=== PATIENT | male | born 1935 | race Caucasian/White ===

== ENCOUNTER 2016-08-06 11:49 | Inpatient (IN) | payer MEDICARE, OTHER ==
[2016-08-03 11:58] LABS: BASOPHILS 0.4 %; BASOPHILS ABSOLUTE 0.05 10/3/uL (0.0-0.16); EOSINOPHILS 6.6 %; EOSINOPHILS ABSOLUTE 0.85 10/3/uL (0.0-0.53); IMMATURE GRANULOCYTES 0.7 %; IMMATURE GRANULOCYTES ABSOLUTE 0.09 10/3/uL (0.0-0.11); LYMPHOCYTES 25.4 %; LYMPHOCYTES ABSOLUTE 3.25 10/3/uL (0.67-4.30); MEAN CORPUS HGB CONC 34.5 g/dL (32.0-36.0); MEAN CORPUSCULAR HEMOGLOB 28.3 pg (26.0-34.0); MONOCYTES 11.4 %; MONOCYTES ABSOLUTE 1.46 10/3/uL (0.21-1.20); NEUTROPHILS 55.5 %; NEUTROPHILS ABSOLUTE 7.11 10/3/uL (2.02-8.40); PLATELET COUNT 252 10/3/uL (150-400); RBC DISTRIBUTION WIDTH 13.5 % (12.0-16.0); RED CELL COUNT 5.69 10/6/uL (4.7-6.1); WHITE BLOOD CELLS 12.8 10/3/uL (4.5-10.5)
[2016-08-03 12:01] LABS: HEMATOCRIT 46.7 % (40.0-51.0); HEMOGLOBIN 16.1 g/dL (13.6-17.8); MANUAL DIFF NO %; MEAN CORPUSCULAR VOLUME 82.1 fL (80-100)
[2016-08-03 12:13] LABS: A/G RATIO 1.5 (0.7-1.9); ALKALINE PHOSPHATASE 99 U/L (45-117); BUN (BLOOD UREA NITROGEN) 23 MG/DL (6-23); CHLORIDE, SERUM 104 MMOL/L (96-112); CO2 (CARBON DIOXIDE) 30 MMOL/L (24-34); GFR AFRICAN AMERICAN 54 ML/MIN (>=60); GFR NON AFRICAN AMERICAN 46 ML/MIN (>=60); GLOBULIN 2.6 G/DL (2.5-4.1); GLUCOSE, SERUM 113 MG/DL (60-99); POTASSIUM, SERUM 3.9 MMOL/L (3.5-5.3); SGOT(AST) 16 U/L (5-40); SGPT(ALT) 22 U/L (5-65); SODIUM, SERUM 141 MMOL/L (135-148); TOTAL BILIRUBIN 0.6 MG/DL (0-1.2); TOTAL PROTEIN 6.6 G/DL (6.0-8.5)
--- NOTE | ~2016-08-06 | CN ---
Consultation Report [facility] [address] [place]. [address] NAME: JOCELYNE TINEO : 34 STATUS : ADM IN [facility]#: [id number] AGE: 81 ADM/REG DATE : 08/08/16 MR#: [id number] REPORT SERV DATE: 08/09/16 DICTATED BY: TIARA ANDINO DATE: 08/08/16 REPORT STATUS : Draft TRANSCRIBED BY: MODL DATE: 08/08/16 HOSPITALIST CONSULTATION DATE OF CONSULTATION: 08/08/2016 REASON FOR CONSULTATION: Hypertension. HISTORY OF PRESENT ILLNESS: This is an awake, alert, and oriented, very pleasant 81-year-old male, who was admitted on 08/06/[address] Rene Suh for a TURP procedure that was completed on that same day. He is postop day 2, and we have been asked to follow him for his persistent hypertension since the procedure. The patient is known to have a history of hypertension and is currently compliant with his treatment by his PCP. He was also noted to be hypertensive postop in the PACU with BP ranges 181 to 194 over 90 to 91. The patient and son who is at the bedside report the patient has been more anxious with some possible confusion and agitation since having anesthesia. The son believes that this anxiety and agitation is causing his persistent elevated blood pressure. The patient at this time denies all symptoms including chest pain, palpitations, dyspnea, headache, dizziness, vision disturbances, nausea, vomiting, diarrhea, or abdominal pain. PAST MEDICAL HISTORY: Significant for: 1. Hypertension. 2. High cholesterol. 3. Coronary artery disease. 4. GERD. 5. Arthritis. 6. Diabetes, [id number]. 7. Irritable bowel syndrome. 8. Diverticulosis. 9. BPH. 10.Skin cancer. 11.Depression. PAST SURGICAL HISTORY: Significant for: 1. Bilateral knee replacement, 1999 and 2005. 2. Right hip replacement, 1996. 3. Esophageal folds/hiatal hernia repair, March 2006. 4. Cholecystectomy, March 2006. 5. Hydrocele removal, 2001. 6. Bilateral CE with IOL, 2014. 7. Colonoscopy, 2011. 8. Throat biopsies. 9. Cardiac stent placement, approximately five years ago, 2011. PRIMARY CARE PHYSICIAN: Dr. Fernandez Meade in [place]. The patient also follows with Dr. Lundbreg of Cardiology. Consultation Report [facility] [id number] [place]. [address] NAME: JOCELYNE TINEO : 34 STATUS : ADM IN PAT#: [id number] AGE: 81 ADM/REG DATE : 08/08/16 MR#: [id number] REPORT SERV DATE: 08/09/16 DICTATED BY: TIARA ANDINO DATE: 08/08/16 REPORT STATUS : Draft TRANSCRIBED BY: MODL DATE: 08/08/16 SOCIAL HISTORY: The patient denies alcohol and illicit drug use. The patient and son report remote history of smoking, having quit smoking cigarettes 50 years ago. FAMILY HISTORY: Mother had stomach cancer. Father's medical history is unknown. ALLERGIES: NO KNOWN ALLERGIES. HOME MEDICATIONS: 1. Amlodipine 5 mg p.o. q.a.m. 2. Aspirin 81 mg p.o. q.h.s. 3. Lomotil 5 mg mg p.o. four times daily p.r.n. 4. Nupur 180 mg p.o. q.a.m. 5. Hydrochlorothiazide 50 mg p.o. every morning. 6. Atarax 10 mg p.o. q.6 hours p.r.n. 7. Metformin 500 mg p.o. twice daily. 8. Lopressor 50 mg p.o. twice daily. 9. Zocor 10 mg p.o. q.h.s. 10.Flomax 0.4 mg p.o. daily. 11.Ultram 50 mg p.o. daily p.r.n. 12.Trazodone 100 mg p.o. q.h.s. 13.Probiotic 200 mg p.o. daily. REVIEW OF SYSTEMS: A complete 10-point review of systems was negative except as per HPI. PHYSICAL EXAMINATION: VITAL SIGNS: T 99.1, P 98, RR 17, BP 195/99, SpO2 of 95% on room air. GENERAL: Well-appearing male, in no acute distress. NEUROLOGIC: Awake, alert, and oriented x3 without focal deficit. HEENT: Normocephalic, atraumatic without lymphadenopathy. NECK: Supple. No JVD. LUNGS: CTA in all lung quintero with normal respiratory effort. CV: Regular rate and rhythm. S1, S2 auscultated without murmur, rub, gallop, or click. ABDOMEN: Soft, round, nontender. Bowel sounds are active in all quadrants. No masses. EXTREMITIES: No cyanosis or edema. Cap refill within normal limits. PSYCH: Normal affect. SKIN: Clean, dry, and intact with mucous membranes pink and moist. PERTINENT LABS: Include BUN and creatinine of 19 and 1.17. ASSESSMENT AND PLAN: 1. Hypertension. This is acute on chronic, having persisted since his recent surgery. The surgeon has continued his home medications. We will see continue these home medications as well as current treatment. Monitor his labs and provide p.r.n. coverage Consultation Report [address] [place]. [address] NAME: JOCELYNE TINEO : 34 STATUS : ADM IN [facility]#: [id number] AGE: 81 ADM/REG DATE : 08/08/16 MR#: [id number] REPORT SERV DATE: 08/09/16 DICTATED BY: TIARA ANDINO DATE: 08/08/16 REPORT STATUS : Draft TRANSCRIBED BY: YVETTE DATE: 08/08/16 for high blood pressure. We will also monitor his fluid status while here. 2. Coronary artery disease. Again, this is chronic. We will monitor his labs and continue his current medications as well as his fluid status. 3. Diabetes mellitus, [id number]. Again, this is chronic and the patient reports his blood sugar ranges at home 100 to 130s. We will monitor his labs and continue his current treatment. 4. Anxiety. This is acute with family, son, thinking this is possibly related to recent surgery and anesthesia. We will monitor his labs, offer reassurance, and provide p.r.n. pharmacologic relief with close monitoring. 5. Post TURP. This procedure was completed on 08/06/2016 and we are postop day #2. We will defer management of this condition to the primary team. Thank you for this consult. We are pleased to follow this patient with you. This consult was completed through thorough review of [employer], old records, [employer], and current chart, as well as interview with the patient and son. [facility]/YVETTE Tiara Portillojudy Andino NP / [id number] CC: Astrid Prabhakar M.D.
--- NOTE | ~2016-08-06 | OP ---
Record Of Operation [facility] [address] [place]. [address] NAME: JOCELYNE TINEO : 33 STATUS : [facility] PAT#: [id number] AGE: 81 ADM/REG DATE : 08/06/16 MR#: [id number] REPORT SERV DATE: 08/06/16 DICTATED BY: RENE GIFFORD DATE: 08/06/16 REPORT STATUS : Draft TRANSCRIBED BY: MODL DATE: 08/06/16 DATE OF PROCEDURE: 08/06/2016 PREOPERATIVE DIAGNOSIS: Benign prostatic hypertrophy and lower urinary tract symptoms/benign prostatic hypertrophy with obstruction. POSTOPERATIVE DIAGNOSIS: Benign prostatic hypertrophy and lower urinary tract symptoms/benign prostatic hypertrophy with obstruction. PROCEDURE: Cysto TURP. ANESTHESIA: General inhalation by LMA. ESTIMATED BLOOD LOSS: Less than 50 mL. SPECIMENS: Prostate chips. COMPLICATIONS: None. DRAINS: One #24, 30 mL, three-way Berry catheter. IMMEDIATE POSTOP: Satisfactory. DESCRIPTION OF PROCEDURE: The patient was brought in to the cysto suite, given inhalational anesthetic, and placed in lithotomy position. Perineum and genitalia were prepped and draped in sterile fashion. Video cystourethroscopy was then performed using #22 cystoscope and Foroblique-30 degree lens. The urethra was normal. Prostate showed trilobar hyperplasia with a moderate-sized median lobe. Ureteral orifices were easily identified well away from the bladder neck and median lobe. The orifices were checked periodically throughout the resection to be dictated below and at the close of resection to be dictated below were found to be grossly undisturbed. The bladder showed heavy trabeculation with scattered cellules and wide-mouth diverticulum, which had been inspected and showed no evidence of neoplasm. At this point, the bladder was left full. The cystoscope was removed. Urethra was dilated with Desmond sounds to a 30 followed by insertion of a #28 continuous flow resectoscope sheath and obturator. The obturator was removed, placed with a working element, and Foroblique-30 degree lens. Obstructing tissue was then resected using the continuous flow resectoscope under video monitoring. Initial area to be resected was the median lobe down to circular muscle fibers of the bladder neck followed by resection of the anterior lobe, left lateral lobe, right lateral lobe, floor, and apex in that order. Hemostasis was obtained with electrocautery. Prostate chips were evacuated using [employer] evacuator. Bladder was checked for residual chips, none were noted. Orifices and sphincter were not involved in the resected field. At this point, the resectoscope was removed. A #24, 30 mL, three-way Berry catheter was placed in the bladder. Balloon inflated, hooked to drainage and continuous irrigation. Catheter was taped on gentle traction to the patient's thigh. The patient was awakened and sent to recovery room in satisfactory condition. There were no complications. Record Of Operation [address] [address] NAME: JOCELYNE TINEO : 34 STATUS : REG [facility]#: [id number] AGE: 81 ADM/REG DATE : 08/06/16 MR#: [id number] REPORT SERV DATE: 08/06/16 DICTATED BY: RENE GIFFORD DATE: 08/06/16 REPORT STATUS : Draft TRANSCRIBED BY: YVETTE DATE: 08/06/16 MS/YVETTE Rene Gifford M.D. / [id number] CC: Astrid Prabhakar M.D.
--- NOTE | ~2016-08-06 | DS ---
Discharge Summary [id number] [place]. [address] NAME: JOCELYNE TINEO : 33 STATUS : DIS IN PAT#: [id number] AGE: 81 ADM/REG DATE : 08/08/16 MR#: [id number] REPORT SERV DATE: 08/27/16 DICTATED BY: RENE GIFFORD DATE: 08/26/16 REPORT STATUS : Draft TRANSCRIBED BY: YVETTE DATE: 08/26/16 Data Collection from hospitalization DISCHARGE DIAGNOSES: 1. Benign prostatic hypertrophy and lower urinary tract symptoms/benign prostatic hypertrophy with obstruction. 2. Hypertension. 3. Diabetes. 4. Coronary artery disease. 5. Hyperlipidemia. 6. Irritable bowel syndrome. 7. Diverticulosis. 8. Gastroesophageal reflux disease. 9. Arthritis. 10.Former smoker. CONSULTATIONS: Aldo Carey M.D. and Tiara Vides NP. PROCEDURES PERFORMED: Cysto TURP 08/06/2016. PATHOLOGY: Prostate tissue (9 g) trans-urethral resection-glandular and stromal hyperplasia. Negative for malignancy. DISCHARGE MEDICATIONS: Norvasc 5 mg twice a day; aspirin 81 mg every day at bedtime; Colace 100 mg every 12 hours; NovoLog injection insulin as instructed; melatonin 6 mg at bedtime; Lopressor 50 mg twice a day; Florastor capsules one capsule daily; Zocor 10 mg at bedtime; Flomax 0.4 mg daily; Glucophage 500 mg twice a day; Dulcolax 10 mg per rectum as needed; dextrose 25 mL IV as needed; dextrose 50 mL IV as needed; Benadryl 25 mg every four hours as needed; glucagon 1 mg IM as needed; glucose tablets 3 to 6 tablets as needed; Ultram 50 mg daily as needed; Atarax 10 mg every six hours as needed; Lomotil 5 mg four times a day as needed; Nupur 180 mg every morning; Desyrel 100 mg at bedtime; Antivert 25 mg every six hours as needed; milk of magnesia 30 mL every four hours as needed; B and O suppository, one suppository per rectum every six hours as needed; Azo 95 mg four times a day as needed; and lisinopril daily as instructed. CONDITION AT DISCHARGE: Stable. DISPOSITION: The patient was discharged to [facility] on an 1800-calorie diabetic diet with activities as instructed. HOSPITAL COURSE: This is an 81-year-old man who has been seen in the office for workup of lower urinary tract symptoms (benign prostatic hypertrophy with obstruction) as well as urgency incontinence requiring pull-up type undergarment. He had undergone a cystoscopic exam in June of 2016 which revealed benign prostatic hypertrophy and a trabeculated bladder with cellules consistent with obstruction. He had been placed on tamsulosin without any benefit. Treatment options were discussed, and it was elected to proceed with surgical intervention. He was admitted to the hospital at this time for further evaluation and treatment. Discharge Summary [facility] [address] [place]. [address] NAME: JOCELYNE TINEO : 33 STATUS : DIS IN [facility]#: [id number] AGE: 81 ADM/REG DATE : 08/08/16 MR#: [id number] REPORT SERV DATE: 08/27/16 DICTATED BY: RENE GIFFORD DATE: 08/26/16 REPORT STATUS : Draft TRANSCRIBED BY: YVETTE DATE: 08/26/16 Upon admission, he was taken to the operating room where he underwent the above-mentioned procedure. He tolerated this well. There were no complications. The following day, he had no complaints. He did have some confusion. On 08/08/2016, the patient became a full admit. He was seen by Tiara Vides. She had been asked to see the patient regarding hypertension. He had been hypertensive postop in the PACU. He had been more anxious and had some possible confusion and agitation since having anesthesia. The patient's son felt that the anxiety and agitation were causing his persistent elevated blood pressure. The patient denied chest pain, palpitations, dyspnea, headache, dizziness, vision disturbances, nausea, vomiting, diarrhea or abdominal pain. The patient's hypertension is acute on chronic. His home medications had been continued. His fluid status would be monitored. Hydrochlorothiazide and beta-stephen and calcium channel stephen were continued. Sliding scale insulin was being provided. The next day, he had no nausea or vomiting. He was tolerating some oral intake. Amlodipine was being given as well as hydralazine. Hydrochlorothiazide was held. Procalcitonin level was going to be checked. White count had increased to 21.2. He still had some confusion. Urine continued to be clear but orange. He had no complaints of pain. Creatinine level was 1.05. He was evaluated by Physical Therapy. On 08/10/2016, he had no complaints. Chest x-ray showed atelectasis. White blood cell count had decreased to 19.2. He was seen by Dr. Aldo Carey regarding hyponatremia. The patient had taken hydrochlorothiazide for several years. It is one of his antihypertensive agents and had never had hyponatremia. From 08/07/2016 forward, he had daily diminution of his sodium level, dropping down to 122. Hydrochlorothiazide had been discontinued. His sodium remained depressed at 123-124. Fluid restriction was initiated. He was going to be placed on oral fluid restriction. Thiazide had been discontinued. Random urine sodium and random urine osmolalities would be checked the following day. We wanted the hydrochlorothiazide to be largely worn off before those studies were checked. We would assess TSH level, free T4, and cortisol level. Sodium levels would be checked every six hours. We would consider 3% sodium chloride infusion if he developed any decline in his mentation and/or sodium level less than 120. We would recheck liver function tests the following day, with comprehensive metabolic panel. Orthostatic blood pressures were checked. The next day, he did complain of weakness. He had no altered mental status, white count decreased to 14.6. He said he felt bad. He did have some dizziness. His gait was slightly unsteady. Loratadine was discontinued. On 08/12/2016, he said he was feeling better. Salt tablets were discontinued. Hydrochlorothiazide remained on hold. We continued to check his orthostatic blood pressures. Sodium level was 132. The next day, he had no improvement in his incontinence from preop. His white blood cell count continued to decrease and was now 13.4. Discharge planning was performed. On 08/14/2016, he was afebrile. Discharge instructions were given. Due to his improved and stable condition, he was discharged to [facility] with the above-stated instructions. Information collected by: Oumou Barney I submit the above information as my discharge summary. TG/MODL Discharge Summary [facility] [address] [place]. [address] NAME: JOCELYNE TINEO : 33 STATUS : DIS IN PAT#: [id number] AGE: 81 ADM/REG DATE : 08/08/16 MR#: [id number] REPORT SERV DATE: 08/27/16 DICTATED BY: RENE GIFFORD DATE: 08/26/16 REPORT STATUS : Draft TRANSCRIBED BY: YVETTE DATE: 08/26/16 Rene Gifford M.D. / [id number] CC: Astrid Prabhakar M.D. John McCarley, M.D. [facility]
--- NOTE | ~2016-08-06 | CN ---
Consultation Report [facility] [address] [place]. [address] NAME: JOCELYNE BAIN : 34 STATUS : ADM IN PAT#: [id number] AGE: 81 ADM/REG DATE : 08/08/16 MR#: [id number] REPORT SERV DATE: 08/10/16 DICTATED BY: YANNICKMAYDA DATE: 08/10/16 REPORT STATUS : Draft TRANSCRIBED BY: MODL DATE: 08/10/16 NEPHROLOGY CONSULTATION DATE OF CONSULTATION: 08/10/2016 REASON FOR CONSULTATION: New hyponatremia. 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 Suh for TURP procedure that was completed on 08/06/2016. On 08/03/2016, when he had his preoperative testing, his sodium measured 141 mEq/L. He has taken hydrochlorothiazide for several years as one of his antihypertensive agents and never had hyponatremia. There were no labs drawn on 08/06/2016, but I presume that his sodium level is still normal at that time. From 08/07/2016 onward, he was noted to have a daily diminution in his sodium level, dropping to a sanjay of 122 millimole per liter on 08/09/2016, and at that point, hydrochlorothiazide has been discontinued. His sodium remains depressed down to 123-124 millimole per liter as of today. Fluid restriction was just initiated today at 1200 mL per 24 hours. Again, he did receive hydrochlorothiazide dosage yesterday, so some of that will still be in his system as of today. He has no known prior history of adrenal insufficiency, pituitary insufficiency, or hypothyroidism. He is not guilty of any substantial amount of polydipsia. He denies any lightheadedness when he stands to ambulate. I am told that he had some mental confusion during the days following his surgery, but at this point today, he seems very lucid. The hospitalist service has been assisting in his medical care for a couple of days now. Serum osmolarity was also depressed, so he indeed has hypoosmolar hyponatremia. I thoroughly enjoyed meeting this gentleman. My thoughts are outlined below. PAST MEDICAL HISTORY: 1. BPH, treated with TURP during this admission. 2. No history of malignancy. 3. Hypertension. 4. Hyperlipidemia. 5. Coronary artery disease. 6. Gastroesophageal reflux disease. 7. Chronic osteoarthritis. 8. Diabetes type 2. 9. Irritable bowel syndrome. 10.Diverticulosis. 11.Remote skin cancers. 12.Remote history of depression, not evident at this time. SURGICAL HISTORY: 1. Bilateral knee replacement in 1999 and also 2005. I am presuming the two different dates are business services representative of each separate knee. 2. Right hip replacement in 1996. Consultation Report [address] [place]. [address] NAME: JOCELYNE ABIN : 34 STATUS : ADM IN PAT#: [id number] AGE: 81 ADM/REG DATE : 08/08/16 MR#: [id number] REPORT SERV DATE: 08/10/16 DICTATED BY: KASH CAREY DATE: 08/10/16 REPORT STATUS : Draft TRANSCRIBED BY: MODMecca DATE: 08/10/16 3. Esophageal folds, hiatal hernia repair, 03/2006. 4. Cholecystectomy, 03/2006. 5. Hydrocele removal, 2001. 6. Colonoscopy, 2011. 7. History of throat biopsy. 8. Cardiac stent placement about five years ago. PRIMARY CARE PHYSICIAN: Dr. Fernandez Meade in [place], [place]. Dr. Lundberg with Cardiology locally is also familiar with him. SOCIAL HISTORY: He is . He has a son, name Cheri Bain. The gentleman quit smoking 50 years ago. 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 FAMILY HISTORY: His mother had stomach cancer. His father's medical history is unknown. ALLERGIES: NO KNOWN DRUG ALLERGIES. HOME MEDICATIONS: Include the following; amlodipine, aspirin, Lomotil, Nupur, hydrochlorothiazide 50 mg every morning, Atarax, metformin, Lopressor, Zocor, Flomax, Ultram. He is also taking a trazodone and a probiotic. From his current medications in the MAR at his chart, electronically it is documented that the hydrochlorothiazide was given yesterday. It was stopped yesterday afternoon. Otherwise, I see nothing in his current MAR, which would dramatically affect his electrolyte levels. REVIEW OF SYSTEMS: GENERAL: Denies any fevers or chills. GI: He had significant nausea and has had this recurrently since his surgery was completed. He was receiving normal saline bladder irrigation after his surgery. He denies any diarrhea or abdominal pain. : Berry catheter has been out for at least 24 hours. He denies any urinary hesitancy at this point. He has substantial urinary hesitancy and also restarting phenomenon after leaving the bathroom prior to his prostate surgery. CARDIOVASCULAR: Denies chest pain. RESPIRATORY: Denies shortness of breath. SKIN: No acute rashes. NEUROLOGIC: Denies headaches or dizziness or lightheadedness when he stands to ambulate. All other review of systems was negative and noncontributory. PHYSICAL EXAMINATION: VITAL SIGNS: Temperature 97.7, heart rate 66, respiratory rate 18, blood pressure 136/66. Weight 74.2 kg. GENERAL: This is a well-developed, well-nourished gentleman, who is alert, lucid, and in no distress. HEENT: Normocephalic, atraumatic. External ears and nose normal. Sinuses nontender. Eye Consultation Report [address] [place]. [address] NAME: JOCELYNE BAIN : 34 STATUS : ADM IN [facility]#: [id number] AGE: 81 ADM/REG DATE : 08/08/16 MR#: [id number] REPORT SERV DATE: 08/10/16 DICTATED BY: KASH CAREY DATE: 08/10/16 REPORT STATUS : Draft TRANSCRIBED BY: YVETTE DATE: 08/10/16 exam, lids and conjunctivae are free of any hemorrhages or exudates. Sclerae anicteric. The pupils are equal, round, and reactive to light. Extraocular motor function is intact. NECK: Supple. Easily movable without meningismus. No palpable masses or nodules. Trachea midline. Thyroid unremarkable. LYMPHATIC: Anterior and posterior neck, supraclavicular, and axillary regions were free of lymphadenopathy. RESPIRATORY: Effort is nonlabored. Lung quintero are clear to auscultation throughout. CARDIOVASCULAR: Regular rate and rhythm is appreciated without any gallop, rub, or murmur. He has no jugular venous distention. ABDOMEN: Soft, nontender. Positive bowel sounds noted throughout. No bruits on auscultation and percussion elicited. No guarding. No evidence of fluid wave. No evidence of organomegaly. SKIN: No rashes, breakdown, or discoloration. Skin turgor was normal. STUDIES: Urinalysis from postoperative day 1 on 08/08/2016, specific gravity 1.014, pH 6, 2+ protein, negative glucose, negative ketones, negative bilirubin, large amount of hemoglobin, moderate leukocyte esterase, negative nitrites. Microscopy reveals greater than 182 red blood cells versus 45 white blood cells and urine chemistries have not been completed yet. Chest x-ray, there is left basilar plate-type atelectasis noted, but no acute infiltrates. No abnormality to the skeletal structures. Chemistries: Sodium of 123, potassium 3.8, chloride 89, CO2 of 25, BUN 30, creatinine 1.22, glucose 132. Serum osmolarity 260 with reference range 275-301. Magnesium yesterday 1.6. LFTs were all within normal limits. Calcium was 8.5. CBC: White cell count 19.2, hemoglobin 15.4, hematocrit 42.6, platelets 270. IMPRESSION: This is an 81-year-old gentleman, who was admitted for transurethral resection of the prostate, who has had sequential drop in sodium level ever since the procedure was performed. The only symptom was recurrent nausea with vomiting and some occasional lightheadedness. Hydrochlorothiazide was just discontinued yesterday and his last dosage was yesterday. Differential: 1. Inappropriate ADH. 2. ADH response to hypotension. Orthostatic blood pressures need to be checked. Also consider hypocortisolism and hypothyroidism. Although, he appears to have some renal insufficiency, I do not feel that it is severe enough to cause severe hyponatremia. 3. 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 4. Chronic hypertension. 5. Postoperative day #4, transurethral resection of the prostate for benign prostatic hypertrophy. 6. Other past medical history and chronic problems as outlined above. PLAN: 1. Oral fluid restrict, 1200 mL. 2. Thiazides have been discontinued. Consultation Report [facility] [address] [place]. [address] NAME: JOCELYNE BAIN REJI : 33 STATUS : ADM IN [facility]#: [id number] AGE: 81 ADM/REG DATE : 08/08/16 MR#: [id number] REPORT SERV DATE: 08/10/16 DICTATED BY: KASH CAREY DATE: 08/10/16 REPORT STATUS : Draft TRANSCRIBED BY: YVETTE DATE: 08/10/16 3. Random urine sodium and random urine osmolarity to be checked tomorrow. I would like the hydrochlorothiazide to be largely worn off before those studies were checked. 4. Assess TSH level, free T4, and 0800 cortisol level. 5. Q.6 h. sodium levels. I will consider 3% sodium chloride infusion if he develops any decline in mentation and/or sodium level less than 120 millimole per liter. 6. Recheck liver function tests tomorrow with comprehensive metabolic panel. Thank you for consulting us to care of this complicated patient. Our service will follow carefully. ANTONI/YVETTE Kash Carey M.D. / [id number] CC: Astrid Prabhakar M.D.
[~2016-08-06 11:49] MED LIST: ALLEGRA180 PO; ASAB PO; AT10 PO; FLOMAX4 PO; GLUCPH PO; HYDROCHLOROT50 MG PO; HYT5 PO; IBU400 PO; LOM PO; LOP50 PO; MOBIC7.5 PO; NEXIUM40 PO; NORV5 PO; PROBIOTIC 10 PO; TRAZ100 PO; ULTRAM50 PO; ZOCOR10 PO; [UNRECOGNIZED DRUG - OTHER] PO
[2016-08-06 12:40] LABS: BASOPHILS 0.5 %; BASOPHILS ABSOLUTE 0.06 10/3/uL (0.0-0.16); EOSINOPHILS 3.3 %; EOSINOPHILS ABSOLUTE 0.42 10/3/uL (0.0-0.53); HEMATOCRIT 47.3 % (40.0-51.0); IMMATURE GRANULOCYTES 0.4 %; IMMATURE GRANULOCYTES ABSOLUTE 0.05 10/3/uL (0.0-0.11); LYMPHOCYTES 23.5 %; LYMPHOCYTES ABSOLUTE 3.03 10/3/uL (0.67-4.30); MEAN CORPUS HGB CONC 35.9 g/dL (32.0-36.0); MEAN CORPUSCULAR HEMOGLOB 28.4 pg (26.0-34.0); MEAN PLATELET VOLUME 10.8 fL (9.2-13.0); MONOCYTES 13.3 %; MONOCYTES ABSOLUTE 1.71 10/3/uL (0.21-1.20); NEUTROPHILS ABSOLUTE 7.62 10/3/uL (2.02-8.40); PLATELET COUNT 262 10/3/uL (150-400); RBC DISTRIBUTION WIDTH 13.6 % (12.0-16.0); RED CELL COUNT 5.98 10/6/uL (4.7-6.1); WHITE BLOOD CELLS 12.9 10/3/uL (4.5-10.5)
[2016-08-06 12:43] LABS: MANUAL DIFF NO %; MEAN CORPUSCULAR VOLUME 79.1 fL (80-100)
[2016-08-07 06:15] LABS: HEMATOCRIT 45.3 % (40.0-51.0); HEMOGLOBIN 16.1 g/dL (13.6-17.8)
[2016-08-07 06:37] LABS: ALBUMIN 3.5 G/DL (3.5-5.0); CHLORIDE, SERUM 102 MMOL/L (96-112); CREATININE 1.17 MG/DL (0.70-1.30); GFR AFRICAN AMERICAN 67 ML/MIN (>=60); GFR NON AFRICAN AMERICAN 58 ML/MIN (>=60); GLUCOSE, SERUM 124 MG/DL (60-99); PHOSPHORUS, SERUM 2.7 MG/DL (2.5-4.5); POTASSIUM, SERUM 3.5 MMOL/L (3.5-5.3); SODIUM, SERUM 136 MMOL/L (135-148)
[2016-08-07 06:39] LABS: BUN (BLOOD UREA NITROGEN) 19 MG/DL (6-23); CO2 (CARBON DIOXIDE) 21 MMOL/L (24-34)
[2016-08-08 06:46] LABS: BASOPHILS 0.1 %; BASOPHILS ABSOLUTE 0.02 10/3/uL (0.0-0.16); EOSINOPHILS 0.7 %; EOSINOPHILS ABSOLUTE 0.15 10/3/uL (0.0-0.53); HEMOGLOBIN 16.3 g/dL (13.6-17.8); IMMATURE GRANULOCYTES 0.6 %; IMMATURE GRANULOCYTES ABSOLUTE 0.13 10/3/uL (0.0-0.11); LYMPHOCYTES 9.8 %; LYMPHOCYTES ABSOLUTE 2.07 10/3/uL (0.67-4.30); MEAN CORPUS HGB CONC 36.2 g/dL (32.0-36.0); MEAN CORPUSCULAR HEMOGLOB 28.4 pg (26.0-34.0); MEAN CORPUSCULAR VOLUME 78.5 fL (80-100); MEAN PLATELET VOLUME 11.1 fL (9.2-13.0); MONOCYTES 13.9 %; MONOCYTES ABSOLUTE 2.93 10/3/uL (0.21-1.20); NEUTROPHILS 74.9 %; NEUTROPHILS ABSOLUTE 15.85 10/3/uL (2.02-8.40); PLATELET COUNT 262 10/3/uL (150-400); RBC DISTRIBUTION WIDTH 13.7 % (12.0-16.0); RED CELL COUNT 5.73 10/6/uL (4.7-6.1)
[2016-08-08 06:48] LABS: MANUAL DIFF NO %; WHITE BLOOD CELLS 21.2 10/3/uL (4.5-10.5)
[2016-08-08 07:05] LABS: A/G RATIO 1.2 (0.7-1.9); ALBUMIN 3.4 G/DL (3.5-5.0); ALKALINE PHOSPHATASE 80 U/L (45-117); BUN (BLOOD UREA NITROGEN) 23 MG/DL (6-23); CALCIUM, SERUM 8.9 MG/DL (8.5-10.4); CHLORIDE, SERUM 99 MMOL/L (96-112); CO2 (CARBON DIOXIDE) 24 MMOL/L (24-34); CREATININE 1.32 MG/DL (0.70-1.30); GFR AFRICAN AMERICAN 58 ML/MIN (>=60); GFR NON AFRICAN AMERICAN 50 ML/MIN (>=60); GLOBULIN 2.9 G/DL (2.5-4.1); GLUCOSE, SERUM 160 MG/DL (60-99); POTASSIUM, SERUM 3.3 MMOL/L (3.5-5.3); SGOT(AST) 19 U/L (5-40); SGPT(ALT) 20 U/L (5-65); SODIUM, SERUM 131 MMOL/L (135-148); TOTAL BILIRUBIN 1.5 MG/DL (0-1.2); TOTAL PROTEIN 6.3 G/DL (6.0-8.5)
[2016-08-08 15:27] LABS: ASCORBIC ACID (UR NOT ORDER) NEG (NEG); BILIRUBIN, URINE NEGATIVE (NEG); KETONE, URINE NEGATIVE (NEG); LEUKOCYTE ESTERASE(NOT OR MOD (NEG); WBC (NOT ORDERED) (RFLEX) 45 (0-5)
[2016-08-09 08:35] LABS: BASOPHILS 0.1 %; BASOPHILS ABSOLUTE 0.02 10/3/uL (0.0-0.16); EOSINOPHILS 0.8 %; EOSINOPHILS ABSOLUTE 0.17 10/3/uL (0.0-0.53); HEMATOCRIT 45.9 % (40.0-51.0); HEMOGLOBIN 16.9 g/dL (13.6-17.8); IMMATURE GRANULOCYTES 0.5 %; LYMPHOCYTES 9.2 %; LYMPHOCYTES ABSOLUTE 1.94 10/3/uL (0.67-4.30); MANUAL DIFF NO %; MEAN CORPUSCULAR HEMOGLOB 28.6 pg (26.0-34.0); MEAN CORPUSCULAR VOLUME 77.7 fL (80-100); MEAN PLATELET VOLUME 11.3 fL (9.2-13.0); MONOCYTES ABSOLUTE 2.96 10/3/uL (0.21-1.20); NEUTROPHILS 75.4 %; NEUTROPHILS ABSOLUTE 15.93 10/3/uL (2.02-8.40); PLATELET COUNT 266 10/3/uL (150-400); RBC DISTRIBUTION WIDTH 13.4 % (12.0-16.0); RED CELL COUNT 5.91 10/6/uL (4.7-6.1); WHITE BLOOD CELLS 21.1 10/3/uL (4.5-10.5)
[2016-08-09 08:48] LABS: ALBUMIN 3.2 G/DL (3.5-5.0); ALKALINE PHOSPHATASE 80 U/L (45-117); CALCIUM, SERUM 9.3 MG/DL (8.5-10.4); CHLORIDE, SERUM 90 MMOL/L (96-112); CO2 (CARBON DIOXIDE) 24 MMOL/L (24-34); CREATININE 1.05 MG/DL (0.70-1.30); GFR AFRICAN AMERICAN 76 ML/MIN (>=60); GFR NON AFRICAN AMERICAN 66 ML/MIN (>=60); GLOBULIN 3.2 G/DL (2.5-4.1); GLUCOSE, SERUM 128 MG/DL (60-99); POTASSIUM, SERUM 3.3 MMOL/L (3.5-5.3); SGOT(AST) 21 U/L (5-40); SGPT(ALT) 16 U/L (5-65); SODIUM, SERUM 125 MMOL/L (135-148); TOTAL PROTEIN 6.4 G/DL (6.0-8.5)
[2016-08-09 08:49] LABS: BUN (BLOOD UREA NITROGEN) 19 MG/DL (6-23)
[2016-08-09 09:21] LABS: PROCALCITONIN 0.05 ng/mL (<0.5)
[2016-08-09 18:32] LABS: BASOPHILS 0.1 %; BASOPHILS ABSOLUTE 0.03 10/3/uL (0.0-0.16); EOSINOPHILS 1.3 %; EOSINOPHILS ABSOLUTE 0.28 10/3/uL (0.0-0.53); HEMATOCRIT 47.3 % (40.0-51.0); HEMOGLOBIN 17.2 g/dL (13.6-17.8); IMMATURE GRANULOCYTES 0.6 %; IMMATURE GRANULOCYTES ABSOLUTE 0.13 10/3/uL (0.0-0.11); LYMPHOCYTES 11.4 %; LYMPHOCYTES ABSOLUTE 2.49 10/3/uL (0.67-4.30); MEAN CORPUS HGB CONC 36.4 g/dL (32.0-36.0); MEAN CORPUSCULAR HEMOGLOB 28.2 pg (26.0-34.0); MEAN CORPUSCULAR VOLUME 77.4 fL (80-100); MEAN PLATELET VOLUME 11.2 fL (9.2-13.0); MONOCYTES ABSOLUTE 3.06 10/3/uL (0.21-1.20); NEUTROPHILS 72.6 %; NEUTROPHILS ABSOLUTE 15.89 10/3/uL (2.02-8.40); PLATELET COUNT 302 10/3/uL (150-400); RBC DISTRIBUTION WIDTH 13.4 % (12.0-16.0); RED CELL COUNT 6.11 10/6/uL (4.7-6.1); WHITE BLOOD CELLS 21.9 10/3/uL (4.5-10.5)
[2016-08-09 18:33] LABS: MANUAL DIFF NO %
[2016-08-09 18:40] LABS: CALCIUM, SERUM 9.4 MG/DL (8.5-10.4); CHLORIDE, SERUM 87 MMOL/L (96-112); CO2 (CARBON DIOXIDE) 24 MMOL/L (24-34); CREATININE 1.14 MG/DL (0.70-1.30); GFR AFRICAN AMERICAN 69 ML/MIN (>=60); GFR NON AFRICAN AMERICAN 60 ML/MIN (>=60); GLUCOSE, SERUM 148 MG/DL (60-99); POTASSIUM, SERUM 3.3 MMOL/L (3.5-5.3); SODIUM, SERUM 122 MMOL/L (135-148)
[2016-08-09 18:42] LABS: BUN (BLOOD UREA NITROGEN) 24 MG/DL (6-23)
[2016-08-10 06:37] LABS: BASOPHILS 0.1 %; BASOPHILS ABSOLUTE 0.02 10/3/uL (0.0-0.16); CALCIUM, SERUM 8.8 MG/DL (8.5-10.4); CHLORIDE, SERUM 88 MMOL/L (96-112); CO2 (CARBON DIOXIDE) 23 MMOL/L (24-34); CREATININE 1.22 MG/DL (0.70-1.30); EOSINOPHILS ABSOLUTE 0.39 10/3/uL (0.0-0.53); GFR AFRICAN AMERICAN 64 ML/MIN (>=60); GFR NON AFRICAN AMERICAN 55 ML/MIN (>=60); GLUCOSE, SERUM 143 MG/DL (60-99); HEMATOCRIT 42.6 % (40.0-51.0); HEMOGLOBIN 15.4 g/dL (13.6-17.8); IMMATURE GRANULOCYTES 0.8 %; IMMATURE GRANULOCYTES ABSOLUTE 0.15 10/3/uL (0.0-0.11); LYMPHOCYTES 9.6 %; LYMPHOCYTES ABSOLUTE 1.85 10/3/uL (0.67-4.30); MEAN CORPUS HGB CONC 36.2 g/dL (32.0-36.0); MEAN CORPUSCULAR HEMOGLOB 27.9 pg (26.0-34.0); MEAN CORPUSCULAR VOLUME 77.3 fL (80-100); MEAN PLATELET VOLUME 11.3 fL (9.2-13.0); MONOCYTES 14.1 %; MONOCYTES ABSOLUTE 2.71 10/3/uL (0.21-1.20); NEUTROPHILS 73.4 %; NEUTROPHILS ABSOLUTE 14.07 10/3/uL (2.02-8.40); PLATELET COUNT 270 10/3/uL (150-400); POTASSIUM, SERUM 3.3 MMOL/L (3.5-5.3); RBC DISTRIBUTION WIDTH 13.1 % (12.0-16.0); RED CELL COUNT 5.51 10/6/uL (4.7-6.1); SODIUM, SERUM 124 MMOL/L (135-148); WHITE BLOOD CELLS 19.2 10/3/uL (4.5-10.5)
[2016-08-10 06:38] LABS: BUN (BLOOD UREA NITROGEN) 29 MG/DL (6-23); MANUAL DIFF NO %
[2016-08-10 08:49] LABS: BUN (BLOOD UREA NITROGEN) 30 MG/DL (6-23); CALCIUM, SERUM 8.5 MG/DL (8.5-10.4); CHLORIDE, SERUM 89 MMOL/L (96-112); CO2 (CARBON DIOXIDE) 25 MMOL/L (24-34); CREATININE 1.22 MG/DL (0.70-1.30); GFR AFRICAN AMERICAN 64 ML/MIN (>=60); GFR NON AFRICAN AMERICAN 55 ML/MIN (>=60); GLUCOSE, SERUM 132 MG/DL (60-99); POTASSIUM, SERUM 3.8 MMOL/L (3.5-5.3); SODIUM, SERUM 123 MMOL/L (135-148)
[2016-08-10 16:37] LABS: FREE T4 1.83 NG/DL (0.76-1.46); ULTRASENSITIVE TSH 1.45 MCIU/ML (0.358-3.740)
[2016-08-11 08:45] LABS: BASOPHILS 0.3 %; BASOPHILS ABSOLUTE 0.04 10/3/uL (0.0-0.16); EOSINOPHILS 5.6 %; EOSINOPHILS ABSOLUTE 0.82 10/3/uL (0.0-0.53); HEMATOCRIT 42.4 % (40.0-51.0); HEMOGLOBIN 15.4 g/dL (13.6-17.8); IMMATURE GRANULOCYTES 0.8 %; IMMATURE GRANULOCYTES ABSOLUTE 0.12 10/3/uL (0.0-0.11); LYMPHOCYTES 16.1 %; LYMPHOCYTES ABSOLUTE 2.35 10/3/uL (0.67-4.30); MEAN CORPUS HGB CONC 36.3 g/dL (32.0-36.0); MEAN CORPUSCULAR HEMOGLOB 27.9 pg (26.0-34.0); MEAN CORPUSCULAR VOLUME 76.8 fL (80-100); MEAN PLATELET VOLUME 10.7 fL (9.2-13.0); MONOCYTES 16.4 %; NEUTROPHILS 60.8 %; NEUTROPHILS ABSOLUTE 8.91 10/3/uL (2.02-8.40); PLATELET COUNT 242 10/3/uL (150-400); RBC DISTRIBUTION WIDTH 13.1 % (12.0-16.0); RED CELL COUNT 5.52 10/6/uL (4.7-6.1); WHITE BLOOD CELLS 14.6 10/3/uL (4.5-10.5)
[2016-08-11 08:46] LABS: MANUAL DIFF NO %
[2016-08-11 09:05] LABS: A/G RATIO 1.1 (0.7-1.9); ALKALINE PHOSPHATASE 72 U/L (45-117); CALCIUM, SERUM 8.5 MG/DL (8.5-10.4); CHLORIDE, SERUM 94 MMOL/L (96-112); CO2 (CARBON DIOXIDE) 27 MMOL/L (24-34); GFR AFRICAN AMERICAN 72 ML/MIN (>=60); GFR NON AFRICAN AMERICAN 62 ML/MIN (>=60); GLOBULIN 2.8 G/DL (2.5-4.1); GLUCOSE, SERUM 119 MG/DL (60-99); PHOSPHORUS, SERUM 2.1 MG/DL (2.5-4.5); POTASSIUM, SERUM 3.5 MMOL/L (3.5-5.3); SGOT(AST) 15 U/L (5-40); SGPT(ALT) 16 U/L (5-65); SODIUM, SERUM 130 MMOL/L (135-148); TOTAL BILIRUBIN 1.2 MG/DL (0-1.2); TOTAL PROTEIN 5.8 G/DL (6.0-8.5)
[2016-08-11 09:06] LABS: BUN (BLOOD UREA NITROGEN) 25 MG/DL (6-23)
[2016-08-11 16:27] LABS: SODIUM, URINE 16 MEQ/L
[2016-08-11 16:38] LABS: OSMOLALITY, URINE 402 MOSM/KG (50-1200)
[2016-08-12 06:59] LABS: ALBUMIN 3.1 G/DL (3.5-5.0); BUN (BLOOD UREA NITROGEN) 23 MG/DL (6-23); CALCIUM, SERUM 8.8 MG/DL (8.5-10.4); CHLORIDE, SERUM 98 MMOL/L (96-112); CO2 (CARBON DIOXIDE) 26 MMOL/L (24-34); CREATININE 1.14 MG/DL (0.70-1.30); GFR AFRICAN AMERICAN 69 ML/MIN (>=60); GFR NON AFRICAN AMERICAN 60 ML/MIN (>=60); GLUCOSE, SERUM 118 MG/DL (60-99); PHOSPHORUS, SERUM 2.3 MG/DL (2.5-4.5); SODIUM, SERUM 132 MMOL/L (135-148)
[2016-08-12 12:43] LABS: BASOPHILS 0.5 %; BASOPHILS ABSOLUTE 0.07 10/3/uL (0.0-0.16); EOSINOPHILS 6.6 %; EOSINOPHILS ABSOLUTE 0.95 10/3/uL (0.0-0.53); HEMATOCRIT 42.3 % (40.0-51.0); HEMOGLOBIN 15.2 g/dL (13.6-17.8); IMMATURE GRANULOCYTES 1.4 %; LYMPHOCYTES 17.3 %; LYMPHOCYTES ABSOLUTE 2.49 10/3/uL (0.67-4.30); MEAN CORPUS HGB CONC 35.9 g/dL (32.0-36.0); MEAN CORPUSCULAR HEMOGLOB 28.3 pg (26.0-34.0); MEAN CORPUSCULAR VOLUME 78.8 fL (80-100); MEAN PLATELET VOLUME 11.6 fL (9.2-13.0); MONOCYTES 18.4 %; MONOCYTES ABSOLUTE 2.66 10/3/uL (0.21-1.20); NEUTROPHILS 55.8 %; NEUTROPHILS ABSOLUTE 8.06 10/3/uL (2.02-8.40); PLATELET COUNT 269 10/3/uL (150-400); RBC DISTRIBUTION WIDTH 13.7 % (12.0-16.0); RED CELL COUNT 5.37 10/6/uL (4.7-6.1); WHITE BLOOD CELLS 14.4 10/3/uL (4.5-10.5)
[2016-08-12 12:45] LABS: MANUAL DIFF NO %
[2016-08-13 07:33] LABS: BASOPHILS 0.3 %; BASOPHILS ABSOLUTE 0.04 10/3/uL (0.0-0.16); EOSINOPHILS 7.5 %; HEMATOCRIT 43.9 % (40.0-51.0); HEMOGLOBIN 15.5 g/dL (13.6-17.8); IMMATURE GRANULOCYTES 1.5 %; LYMPHOCYTES 22.6 %; LYMPHOCYTES ABSOLUTE 3.02 10/3/uL (0.67-4.30); MEAN CORPUS HGB CONC 35.3 g/dL (32.0-36.0); MEAN CORPUSCULAR HEMOGLOB 28.1 pg (26.0-34.0); MEAN CORPUSCULAR VOLUME 79.7 fL (80-100); MEAN PLATELET VOLUME 10.8 fL (9.2-13.0); MONOCYTES 13.8 %; MONOCYTES ABSOLUTE 1.85 10/3/uL (0.21-1.20); NEUTROPHILS 54.3 %; NEUTROPHILS ABSOLUTE 7.26 10/3/uL (2.02-8.40); PLATELET COUNT 271 10/3/uL (150-400); RBC DISTRIBUTION WIDTH 13.3 % (12.0-16.0); RED CELL COUNT 5.51 10/6/uL (4.7-6.1); WHITE BLOOD CELLS 13.4 10/3/uL (4.5-10.5)
[2016-08-13 07:34] LABS: MANUAL DIFF NO %
[2016-08-13 07:52] LABS: ALBUMIN 3.1 G/DL (3.5-5.0); BUN (BLOOD UREA NITROGEN) 21 MG/DL (6-23); CALCIUM, SERUM 8.8 MG/DL (8.5-10.4); CHLORIDE, SERUM 102 MMOL/L (96-112); CO2 (CARBON DIOXIDE) 27 MMOL/L (24-34); CREATININE 1.05 MG/DL (0.70-1.30); GFR AFRICAN AMERICAN 76 ML/MIN (>=60); GFR NON AFRICAN AMERICAN 66 ML/MIN (>=60); GLUCOSE, SERUM 111 MG/DL (60-99); PHOSPHORUS, SERUM 2.6 MG/DL (2.5-4.5); POTASSIUM, SERUM 3.9 MMOL/L (3.5-5.3); SODIUM, SERUM 135 MMOL/L (135-148)
== END 2016-08-14 18:27 | DRG 713 ==
LOC: SDC 11:49 → 4SO 18:16
PROVIDERS: Internal Medicine; Internal Medicine Nephrology; Nurse Practitioner Family; Student in an Organized Health Care Education/Training Program; Urology
PROC: 0VB08ZZ Excision of Prostate, Via Natural or Artificial Opening Endoscopic (ICD-10-PCS; principal; 2016-08-06 13:45)
PROC: 0TJB8ZZ Inspection of Bladder, Via Natural or Artificial Opening Endoscopic (ICD-10-PCS; 2016-08-06 13:45)
DX: N40.1 Benign prostatic hyperplasia with lower urinary tract symptoms (principal); N13.8 Other obstructive and reflux uropathy; E11.22 Type 2 diabetes mellitus with diabetic chronic kidney disease; E87.1 Hypo-osmolality and hyponatremia; E78.5 Hyperlipidemia, unspecified; I25.10 Atherosclerotic heart disease of native coronary artery without angina pectoris; N18.2 Chronic kidney disease, stage 2 (mild); I12.9 Hypertensive chronic kidney disease with stage 1 through stage 4 chronic kidney disease, or unspecified chronic kidney disease; K21.9 Gastro-esophageal reflux disease without esophagitis; K58.9 Irritable bowel syndrome, unspecified; Z79.82 Long term (current) use of aspirin; Z79.84 Long term (current) use of oral hypoglycemic drugs; Z79.899 Other long term (current) drug therapy; Z96.653 Presence of artificial knee joint, bilateral; Z96.641 Presence of right artificial hip joint; Z98.61 Coronary angioplasty status; N32.3 Diverticulum of bladder; I95.1 Orthostatic hypotension; N39.498 Other specified urinary incontinence; E87.6 Hypokalemia; K57.90 Diverticulosis of intestine, part unspecified, without perforation or abscess without bleeding; Z85.828 Personal history of other malignant neoplasm of skin; Z87.891 Personal history of nicotine dependence
CPT/HCPCS: 71010; 71020; 74000; 80048; 80053; 80069; 81001; 82533; 82962; 83735; 83930; 83935; 84100; 84145; 84295; 84300; 84439; 84443; 85014; 85018; 85025; 87086; 88305; 88307; 93005; 97110-GP; 97116-GP; 97161-GP; A9270-GY; C1758; G8978-CK-GP; G8979-CI-GP; J0360; J2270; J2405; J3010